=== PATIENT | male | born 1975 | race Caucasian/White ===

== ENCOUNTER 2022-08-08 08:07 | Outpatient (CLI) | payer OTHER, SELFPAY | END 2022-08-08 08:08 | disposition home or self-care (01) | LOC: NFLDREF 08-12 09:53 | PROVIDERS: PCP Family Medicine; Referring Provider Family Medicine; Visit Provider Family Medicine | DX: Z13.0 Encounter for screening for diseases of the blood and blood-forming organs and certain disorders involving the immune mechanism (principal); Z13.228 Encounter for screening for other metabolic disorders | CPT/HCPCS: 80048; 80061; 80076 ==